=== PATIENT | female | born 1985 | race Caucasian/White ===

== ENCOUNTER 2017-06-23 21:42 | Emergency (ER) | payer SELFPAY ==
[2017-06-23 22:08] VITALS: BP 116/76
[2017-06-23] MEDS ORDERED: DIPH/PERTUSS(ACELL)/TETANUS VAC/PF 0.5 ML SYR (>=10YO) IM ONE (23:18)
--- NOTE | 2017-06-24 00:40 | RADIOLOGY REPORT (SQ) ---
EXAM DESCRIPTION: FOOT LEFT COMPLETE COMPLETED DATE/TIME: 06/24/2017 12:27 am REASON FOR STUDY: glass in foot COMPARISON: None. NUMBER OF VIEWS: Three views. TECHNIQUE: AP, lateral and oblique radiographic images acquired of the left foot. LIMITATIONS: None. FINDINGS: MINERALIZATION: Normal. BONES: No acute fracture or dislocation. No worrisome bone lesions. JOINTS: No effusions. SOFT TISSUES: No soft tissue swelling. No foreign body. OTHER: No other significant finding. IMPRESSION: NEGATIVE STUDY OF THE LEFT FOOT. NO RADIOGRAPHIC EVIDENCE OF ACUTE INJURY. TECHNICAL DOCUMENTATION: JOB ID: [id number] [employer]- All Rights Reserved
--- NOTE | 2017-06-24 00:58 | ER Document Report ---
ED Extremity Problem, Lower - General Chief Complaint: Foot Pain Stated Complaint: LEFT FOOT PAIN Time Seen by Provider: 06/23/17 23:47 Mode of Arrival: Ambulatory Information source: Patient Notes: 32-year-old female presented to ED for piece of glass in the plantar surface of her left foot just behind her toes. She states she dropped a bowl on a counter and thought she done a ball the glass and then she stepped on a piece of glass on the floor. She states when she tried to remove the glass herself and got very short of breath and faint because she has asthma and she gets when she gets in a position that makes it hard to breathe. TRAVEL OUTSIDE OF THE [place] IN LAST 30 DAYS: No - HPI Patient complains to provider of: Injury, Pain Location: Foot Occurred: This evening Where: Indoors Onset/Duration: Gradual Quality of pain: Sharp Severity: Moderate Pain Level: 4 Context: Barefoot, Other - Piece of glass in her foot Recent injury: Yes Associated symptoms: Painful ambulation Exacerbated by: Movement, Walking Relieved by: Nothing - Related Data Allergies/Adverse Reactions: pineapple Allergy (Verified 06/23/17 21:49) Pork/Porcine Containing Products Allergy (Verified 06/23/17 21:49) Past Medical History - General Information source: Patient - Social History Smoking Status: Never Smoker Cigarette use (# per day): No Chew tobacco use (# tins/day): No Smoking Education Provided: No Frequency of alcohol use: Rare Drug Abuse: None Lives with: Homeless Family History: CVA, Hypertension, Thyroid Disfunction. denies: Arthritis, CAD , COPD, DM, Hyperlipidemia, Malignancy Patient has suicidal ideation: No Patient has homicidal ideation: No - Past Medical History Cardiac Medical History: Reports: None Pulmonary Medical History: Reports: Hx Asthma EENT Medical History: Reports: None Neurological Medical History: Reports: None Endocrine Medical History: Reports: None Renal/ Medical History: Reports: None Malignancy Medical History: Reports: None GI Medical History: Reports: None Musculoskeltal Medical History: Reports Hx Musculoskeletal Deformity, Reports Hx Musculoskeletal Trauma Skin Medical History: Reports None Psychiatric Medical History: Reports: None Traumatic Medical History: Reports: None Infectious Medical History: Reports: None Past Surgical History: Reports: Hx Section - Immunizations Immunizations up to date: Yes Hx Diphtheria, Pertussis, Tetanus Vaccination: Yes - 06/24/2017 Review of Systems - Review of Systems Constitutional: No symptoms reported EENT: No symptoms reported Cardiovascular: No symptoms reported Respiratory: No symptoms reported Gastrointestinal: No symptoms reported Genitourinary: No symptoms reported Female Genitourinary: No symptoms reported Musculoskeletal: No symptoms reported Skin: Other - Glass shard in the plantar surface of her left foot Hematologic/Lymphatic: No symptoms reported Neurological/Psychological: No symptoms reported Physical Exam - Vital signs Vitals: Temp Pulse BP Pulse Ox 98.3 F 76 116/76 97 06/23/17 22:07 06/23/17 22:07 06/23/17 22:07 06/23/17 22:07 Interpretation: Normal - General General appearance: Appears well, Alert - HEENT Head: Normocephalic, Atraumatic Eyes: Normal Pupils: PERRL - Respiratory Respiratory status: No respiratory distress Chest status: Nontender Breath sounds: Normal Chest palpation: Normal - Cardiovascular Rhythm: Regular Heart sounds: Normal auscultation Murmur: No - Abdominal Inspection: Normal Distension: No distension Bowel sounds: Normal Tenderness: Nontender Organomegaly: No organomegaly - Back Back: Normal, Nontender - Extremities General upper extremity: Normal inspection, Nontender, Normal color, Normal ROM , Normal temperature General lower extremity: Normal inspection, Nontender, Normal color, Normal ROM , Normal temperature, Normal weight bearing. No: Cookie's sign - Neurological Neuro grossly intact: Yes Cognition: Normal Orientation: AAOx4 [place] Coma Scale Eye Opening: Spontaneous [place] Coma Scale Verbal: Oriented [place] Coma Scale Motor: Obeys Commands Victor[place] Coma Scale Total: 15 Speech: Normal Motor strength normal: LUE, RUE, LLE, RLE Sensory: Normal - Psychological Associated symptoms: Normal affect, Normal mood - Skin Skin Temperature: Warm Skin Moisture: Dry Skin Color: Normal Location of irregularity: Extremities - Glass shard in the plantar surface of her left foot just behind her toes Course - Re-evaluation Re-evalutation: 06/24/17 01:01 Left foot cleaned well with Betadine then glass shard removed with forceps and an 18-gauge needle. Patient tolerated well. Site was clean, bacitracin applied , and a Band-Aid applied. Patient was instructed to soak foot tomorrow and reapply bacitracin and Band-Aid. Patient was instructed to follow-up with primary doctor or emergency room if any signs of infection such as drainage redness or increased pain. - Vital Signs Vital signs: Temp Pulse Resp BP Pulse Ox 98.3 F 76 116/76 97 06/23/17 22:07 06/23/17 22:07 06/23/17 22:07 06/23/17 22:07 - Diagnostic Test Radiology reviewed: Image reviewed, Reports reviewed Discharge - Discharge Clinical Impression: glass in left foot plantar surface Condition: Stable Disposition: HOME, SELF-CARE Instructions: Family Physicians / Practices Additional Instructions: You were seen today for glass fragment in your left foot. Last was removed bacitracin and Band-Aid applied. You will need to soak your foot in the Betadine that you were provided with an warm water tomorrow then cleaned the foot off with some warm water and apply bacitracin and a Band-Aid after that you foot should be okay. SOAP CLEANSING: Gently wash the wound daily using a mild soap (like Ivory, Phisoderm, Neutrogena). Use warm water, rubbing gently until all debris, ooze, and crusting have been washed from the wound. Allow to dry briefly (about 10 minutes) after cleaning. Repeat this cleansing at least three times a day for the first two days and then once or twice a day. ANTIBIOTIC OINTMENT PROTECTION: Your wounds are such that dressing them is not practical or optional. After cleansing, you should apply a thin coating of antibiotic ointment ( Bacitracin, not Neosporin) to the wounds at least three times daily. This lessens infection risk, and may decrease the amount of scarring. Use a q-tip or dull butter knife, not your finger, to apply this ointment. Any debris or ooze which builds up in the ointment should be gently rubbed off with a sterile gauze pad. Harder crusting may need to be gently scrubbed off with a clean wash cloth with soap and warm water, perhaps applying a warm, wet wash cloth to the wound for ten minutes first. Development of redness, severe itching, or blistering may mean allergy to the ointment. See the doctor. TETANUS IMMUNIZATION GIVEN: You have been given an immunization against tetanus. Please record this in your records. In general, a booster is needed only once every 10 years. The tetanus shot protects against tetanus or "lockjaw," which is a complication of certain wound infections (the tetanus shot cannot protect against the actual infection). The immunization site may become warm and red due to local reaction. If this occurs, apply warm compresses and take aspirin or ibuprofen to reduce inflammation and discomfort. Return for evaluation if the reaction becomes severe. FOLLOW-UP CARE: If you have been referred to a physician for follow-up care, call the physician s office for an appointment as you were instructed or within the next two days. If you experience worsening or a significant change in your symptoms, notify the physician immediately or return to the Emergency Department at any time for re-evaluation.
== END 2017-06-24 01:04 | disposition home or self-care (01) ==
LOC: ER 21:42
PROC: 0JCR3ZZ Extirpation of Matter from Left Foot Subcutaneous Tissue and Fascia, Percutaneous Approach (ICD-10-PCS; principal; 2017-06-23)
DX: S90.852A Superficial foreign body, left foot, initial encounter (principal); M79.672 Pain in left foot; R06.02 Shortness of breath; X58.XXXA Exposure to other specified factors, initial encounter
CPT/HCPCS: 90471; 90715; 99283

== ENCOUNTER 2017-09-14 15:13 | Emergency (ER) | payer SELFPAY ==
--- NOTE | 2017-09-14 15:27 | ER Document Report ---
ED GI/ - General Chief Complaint: Urinary Frequency Stated Complaint: FREQUENT URINATION Time Seen by Provider: 09/14/17 15:26 Notes: 32-year-old female to the emergency department chief complaint of dysuria and frequency. Started on some [id number] Azo approximately 3 days ago. This has helped. Actually she feels pretty good at this time but then began to get worried that she may actually have an infection that could get worse so wanted to get it checked out definitively. Denies any fevers. Denies any abdominal pain. States that she was on her menstrual cycle 2 days ago and stopped. Denies any other complaints at this time. Denies any flank pain. States that she did have a history of kidney stones but has not had any pain other than frequency with urination and some mild discomfort with urination TRAVEL OUTSIDE OF THE [place] IN LAST 30 DAYS: No - HPI Patient complains to provider of: Dysuria. No: Abdominal pain, Diarrhea, Flank pain, Hematuria, Pelvic pain Timing/Duration: Gradual, Better Quality of pain: Burning Severity at maximum: Mild Severity in ED: Mild Pain Level: 0 - Related Data Allergies/Adverse Reactions: pineapple Allergy (Verified 06/23/17 21:49) Pork/Porcine Containing Products Allergy (Verified 06/23/17 21:49) Past Medical History - General Information source: Patient - Social History Smoking Status: Never Smoker Cigarette use (# per day): No Frequency of alcohol use: None Drug Abuse: None Lives with: Spouse/Significant other Family History: CVA, Hypertension, Thyroid Disfunction. denies: Arthritis, CAD , COPD, DM, Hyperlipidemia, Malignancy Pulmonary Medical History: Reports: Hx Asthma Renal/ Medical History: Denies: Hx Peritoneal Dialysis Musculoskeltal Medical History: Reports Hx Musculoskeletal Deformity, Reports Hx Musculoskeletal Trauma Past Surgical History: Reports: Hx Section - Immunizations Immunizations up to date: Yes Hx Diphtheria, Pertussis, Tetanus Vaccination: Yes - 06/24/2017 Review of Systems - Review of Systems Constitutional: denies: Fever, Malaise, Weakness Cardiovascular: denies: Chest pain, Palpitations, Heart racing Respiratory: denies: Cough, Hurts to breathe, Short of breath Gastrointestinal: denies: Abdominal pain, Diarrhea, Nausea, Vomiting Genitourinary: Dysuria, Frequency, Urgency. denies: Flank pain, Hematuria, Incontinence Female Genitourinary: denies: , Vaginal discharge, Vaginal bleeding Physical Exam - Vital signs Interpretation: Normal - General General appearance: Appears well, Alert - Respiratory Respiratory status: No respiratory distress Chest status: Nontender Breath sounds: Normal Chest palpation: Normal - Cardiovascular Rhythm: Regular Heart sounds: Normal auscultation Murmur: No - Abdominal Inspection: Normal Distension: No distension Bowel sounds: Normal Tenderness: Nontender Organomegaly: No organomegaly - Back Back: Normal, Nontender. No: CVA tenderness - Psychological Associated symptoms: Normal affect, Normal mood Course - Re-evaluation Re-evalutation: 09/14/17 15:44 This is a well-appearing 32-year-old female in no acute distress. Patient has symptoms consistent with uncomplicated UTI. Urine urinalysis results but will treat based on her symptoms. The patient is comfortable with this plan. Discharge - Discharge Clinical Impression: Urinary tract infection Qualifiers: Urinary tract infection type: site unspecified Hematuria presence: without hematuria Qualified Code(s): N39.0 - Urinary tract infection, site not specified Disposition: HOME, SELF-CARE Instructions: Trimethoprim-Sulfa ([facility]), Urinary Tract Infection ([facility]) Prescriptions: Sulfamethoxazole/Trimethoprim [Bactrim Ds Tablet] 1 each PO BID 3 Days #6 tablet
[2017-09-14 16:07] LABS: APPEARANCE,URINE SLIGHTLY-CLOUDY; BILIRUBIN,URINE NEGATIVE (NEGATIVE); COLOR,URINE YELLOW; GLUCOSE, URINE NEGATIVE (NEGATIVE); KETONES,URINE NEGATIVE (NEGATIVE); LEUKOCYTE ESTERASE,URINE TRACE (NEGATIVE); NITRITE,URINE NEGATIVE (NEGATIVE); PROTEIN,URINE NEGATIVE (NEGATIVE); URINE SPECIFIC GRAVITY 1.019; UROBILINOGEN,URINE NEGATIVE mg/dL (<2.0)
[2017-09-14 16:24] VITALS: BP 125/66
== END 2017-09-14 16:10 | disposition home or self-care (01) ==
LOC: ER 15:13
DX: N39.0 Urinary tract infection, site not specified (principal); J45.909 Unspecified asthma, uncomplicated; Z87.442 Personal history of urinary calculi; Z91.018 Allergy to other foods
CPT/HCPCS: 81001; 81025; 87086; 99283

== ENCOUNTER 2017-10-24 10:54 | Emergency (ER) | payer SELFPAY ==
[2017-10-24 11:00] VITALS: BP 100/85
[2017-10-24] MEDS ORDERED: IBUPROFEN 800 MG TABLET PO ONE (11:32)
--- NOTE | 2017-10-24 11:34 | ER Document Report ---
ED Oral Problem - General Chief Complaint: Mouth Problem Stated Complaint: SORE THROAT Time Seen by Provider: 10/24/17 11:09 Mode of Arrival: Ambulatory Information source: Patient Notes: Patient is a 32-year-old female who presents to the ER today for 4 days of congestion, 2 days of teeth pain "all over" and "a weird feeling when I swallow. " Patient denies any swelling anywhere or pain when she swallows, admits to a headache. Patient denies any cough, shortness of breath, wheezing, fever, chills. TRAVEL OUTSIDE OF THE [place] IN LAST 30 DAYS: No - Related Data Allergies/Adverse Reactions: pineapple Allergy (Verified 10/24/17 10:55) Pork/Porcine Containing Products Allergy (Verified 10/24/17 10:55) Past Medical History - General Information source: Patient - Social History Smoking Status: Never Smoker Family History: CVA, Hypertension, Thyroid Disfunction. denies: Arthritis, CAD , COPD, DM, Hyperlipidemia, Malignancy Pulmonary Medical History: Reports: Hx Asthma Renal/ Medical History: Denies: Hx Peritoneal Dialysis Musculoskeltal Medical History: Reports Hx Musculoskeletal Deformity, Reports Hx Musculoskeletal Trauma Past Surgical History: Reports: Hx Section - Immunizations Immunizations up to date: Yes Hx Diphtheria, Pertussis, Tetanus Vaccination: Yes - 06/24/2017 Review of Systems - Review of Systems Constitutional: No symptoms reported EENT: See HPI Cardiovascular: No symptoms reported Respiratory: No symptoms reported Gastrointestinal: No symptoms reported Genitourinary: No symptoms reported Female Genitourinary: No symptoms reported Musculoskeletal: No symptoms reported Skin: No symptoms reported Hematologic/Lymphatic: No symptoms reported Neurological/Psychological: No symptoms reported Physical Exam - Vital signs Vitals: Temp Pulse Resp BP Pulse Ox 99.0 F 80 17 100/85 96 10/24/17 10:58 10/24/17 10:58 10/24/17 10:58 10/24/17 10:58 10/24/17 10:58 - Notes Notes: PHYSICAL EXAMINATION: GENERAL: Mildly ill-appearing, but in no acute distress. HEAD: Atraumatic, normocephalic. EYES: Pupils equal round and reactive to light, extraocular movements intact, sclera anicteric, conjunctiva are normal. ENT: ear canals without erythema or foreign body, TMs pearly irizarry with good bony landmarks, nares with mucoid discharge , oropharynx erythematous without enlarged tonsils without exudates. Moist mucous membranes. maxillary and frontal sinuses tender to palpation NECK: Normal range of motion, supple without lymphadenopathy LUNGS: CTAB and equal. No wheezes rales or rhonchi. HEART: Regular rate and rhythm without murmurs EXTREMITIES: Normal range of motion, no pitting edema. No cyanosis. NEUROLOGICAL: Cranial nerves grossly intact. Normal sensory/motor exams. PSYCH: Normal mood, normal affect. SKIN: Warm, Dry, normal turgor, no rashes or lesions noted Course - Vital Signs Vital signs: Temp Pulse Resp BP Pulse Ox 99.0 F 80 17 100/85 96 10/24/17 10:58 10/24/17 10:58 10/24/17 10:58 10/24/17 10:58 10/24/17 10:58 Discharge - Discharge Clinical Impression: Sinusitis Qualifiers: Sinusitis location: unspecified location Chronicity: acute Recurrence: non- recurrent Qualified Code(s): J01.90 - Acute sinusitis, unspecified Condition: Stable Disposition: HOME, SELF-CARE Additional Instructions: Return immediately for any new or worsening symptoms. Follow up with primary care provider, call tomorrow to make followup appointment. Prescriptions: Amoxicillin 500 mg PO TID #30 capsule Fluticasone Propionate [Flonase Nasal [place] 50 Mcg/[place] 16 gm] 2 sprays NASL Q12 #1 inhaler Ibuprofen [Motrin 800 mg Tablet] 800 mg PO Q8H PRN #30 tab PRN Reason:
== END 2017-10-24 11:42 | disposition home or self-care (01) ==
LOC: ER 10:54
DX: J01.90 Acute sinusitis, unspecified (principal); J02.9 Acute pharyngitis, unspecified; R51 Headache; K08.89 Other specified disorders of teeth and supporting structures; J45.909 Unspecified asthma, uncomplicated; Z91.018 Allergy to other foods
CPT/HCPCS: 99282

== ENCOUNTER 2018-07-13 21:07 | Emergency (ER) | payer SELFPAY ==
[2018-07-13 21:28] VITALS: BP 112/63
--- NOTE | 2018-07-13 23:19 | ER Document Report ---
HPI - HPI Time Seen by Provider: 07/13/18 22:24 Pain Level: 3 Notes: Patient is an otherwise healthy 33-year-old female who presents to the emergency department with complaint of splinter in her right index finger. She reports this is been present for approximately 2 hours. She denies trying to remove the splinter prior to coming to the emergency department. - CONSTITUTIONAL Constitutional: DENIES: Fever, Chills - REPRODUCTIVE Reproductive: DENIES: : Past Medical History - General Information source: Patient - Social History Smoking Status: Never Smoker Frequency of alcohol use: None Drug Abuse: None Family History: CVA, Hypertension, Thyroid Disfunction. denies: Arthritis, CAD, COPD, DM, Hyperlipidemia, Malignancy Patient has suicidal ideation: No Patient has homicidal ideation: No Pulmonary Medical History: Reports: Hx Asthma Renal/ Medical History: Denies: Hx Peritoneal Dialysis Musculoskeletal Medical History: Reports Hx Musculoskeletal Deformity, Reports Hx Musculoskeletal Trauma Past Surgical History: Reports: Hx Section - Immunizations Immunizations up to date: Yes Hx Diphtheria, Pertussis, Tetanus Vaccination: Yes - 06/24/2017 Vertical Provider Document - CONSTITUTIONAL Notes: PHYSICAL EXAMINATION: GENERAL: Well-appearing, well-nourished and in no acute distress. HEAD: Atraumatic, normocephalic. EYES: Pupils equal round extraocular movements intact, conjunctiva are normal. ENT: Nares patent NECK: Normal range of motion LUNGS: No respiratory distress Musculoskeletal: Normal range of motion NEUROLOGICAL: Normal speech, normal gait. PSYCH: Normal mood, normal affect. SKIN: Warm, Dry, normal turgor, no rashes or lesions noted. Tiny splinter noted to patient's right index finger, no erythema or swelling noted. - INFECTION CONTROL TRAVEL OUTSIDE OF THE [place] IN LAST 30 DAYS: No Course - Re-evaluation Re-evalutation: 07/13/18 23:18 Splinter was removed without difficulty with tweezers. - Vital Signs Vital signs: Temp Pulse Resp BP Pulse Ox 98.2 F 80 18 112/63 97 07/13/18 21:27 07/13/18 21:27 07/13/18 21:27 07/13/18 21:27 07/13/18 21:27 Discharge - Discharge Clinical Impression: Splinter removal, Splinter in skin Condition: Stable Disposition: HOME, SELF-CARE Additional Instructions: The splinter in your finger was removed. Please keep the Band-Aid on the area for the next hour.
== END 2018-07-13 23:30 | disposition home or self-care (01) ==
LOC: ER 21:07
DX: S60.450A Superficial foreign body of right index finger, initial encounter (principal); W45.8XXA Other foreign body or object entering through skin, initial encounter
CPT/HCPCS: 99283

== ENCOUNTER 2018-12-05 15:54 | Emergency (ER) | payer SELFPAY ==
[2018-12-05 16:01] VITALS: BP 110/65
--- NOTE | 2018-12-05 16:06 | ER Document Report ---
HPI - HPI Patient complains to provider of: lip and knee pain Time Seen by Provider: 12/05/18 16:00 Onset: Yesterday Onset/Duration: Sudden Pain Level: 2 Context: Patient presents emergency department with reports she had an incident yesterday. She reports that she slipped on some ice and fell and hit her lip on the sliding glass window. She also reports her knee is hurt. No change in LOC. No other symptoms such as fever vomiting diarrhea. Associated Symptoms: None Exacerbated by: Denies Relieved by: Denies Similar symptoms previously: No Recently seen / treated by doctor: No - REPRODUCTIVE Reproductive: DENIES: : Past Medical History - General Information source: Patient Last Menstrual Period: 11/03/18 - Social History Smoking Status: Unknown if Ever Smoked Cigarette use (# per day): No Frequency of alcohol use: None Drug Abuse: None Family History: CVA, Hypertension, Thyroid Disfunction. denies: Arthritis, CAD, COPD, DM, Hyperlipidemia, Malignancy Pulmonary Medical History: Reports: Hx Asthma Renal/ Medical History: Denies: Hx Peritoneal Dialysis Musculoskeletal Medical History: Reports Hx Musculoskeletal Deformity, Reports Hx Musculoskeletal Trauma Past Surgical History: Reports: Hx Section - Immunizations Immunizations up to date: Yes Hx Diphtheria, Pertussis, Tetanus Vaccination: Yes - 06/24/2017 Vertical Provider Document - CONSTITUTIONAL Agree With Documented VS: Yes Exam Limitations: No Limitations General Appearance: WD/WN, No Apparent Distress - Nontoxic looking - INFECTION CONTROL TRAVEL OUTSIDE OF THE [place] IN LAST 30 DAYS: No - HEENT HEENT: Atraumatic, Normocephalic. negative: Conjuctival Injection, Pharyngeal Erythema Mouth Diagram: 1 - Small swelling noted - NECK Neck: Normal Inspection, Supple. negative: Lymphadenopathy-Left, Lymphadenopathy-Right - RESPIRATORY Respiratory: Breath Sounds Normal, No Respiratory Distress - CARDIOVASCULAR Cardiovascular: Regular Rate, Regular Rhythm - MUSCULOSKELETAL/EXTREMETIES Musculoskeletal/Extremeties: MAEW, FROM, Non-Tender - pt c/o left knee was hurting, no pain voiced with palpation, no obvious deformity, no swelling, no ecchymosis, no erythema/warmth. +from. - NEURO Level of Consciousness: Awake, Alert, Appropriate Motor/Sensory: No Motor Deficit - DERM Integumentary: Warm, Dry Adult Front & Back Diagram: 1 - Complains of some pain tenderness, no erythema no swelling no warmth no obvious discharge full range patient patient walks without problems Course - Re-evaluation Re-evalutation: 12/05/18 16:10 Patient looks good nontoxic looking. Instructed to monitor her lip place cool cloth on it and ice pack to her knee. She was also instructed ibuprofen for any pain she verbalized understanding to all instructions Dictation of this chart was performed using voice recognition software; therefore, there may be some unintended grammatical errors. - Vital Signs Vital signs: Temp Pulse Resp BP Pulse Ox 99.1 F 78 18 110/65 98 12/05/18 15:59 12/05/18 15:59 12/05/18 15:59 12/05/18 15:59 12/05/18 15:59 Discharge - Discharge Clinical Impression: Lip pain, Left knee pain Condition: Stable Disposition: HOME, SELF-CARE Instructions: Use of [id number] Ibuprofen ([facility]) Additional Instructions: *You have been evaluated for left knee pain lip pain after a fall yesterday. *Take ibuprofen as indicated for pain *Follow up with a primary care provider within 1 week for recheck *Return to ED for worsening condition, changes, needs
== END 2018-12-05 16:19 | disposition home or self-care (01) ==
LOC: ER 15:54
DX: M25.562 Pain in left knee (principal); K13.79 Other lesions of oral mucosa; W00.0XXA Fall on same level due to ice and snow, initial encounter
CPT/HCPCS: 99283

== ENCOUNTER 2019-03-19 10:47 | Emergency (ER) | payer SELFPAY ==
[2019-03-19 11:27] LABS: ALBUMIN 4.1 g/dL (3.5-5.0); ALKALINE PHOSPHATASE 64 U/L (38-126); ANION GAP 9 (5-19); ASPARTATE AMINO TRANSFERASE 20 U/L (14-36); BILIRUBIN,DIRECT 0.2 mg/dL (0.0-0.4); BILIRUBIN,TOTAL 0.3 mg/dL (0.2-1.3); BLOOD UREA NITROGEN 15 mg/dL (7-20); CALCIUM 9.2 mg/dL (8.4-10.2); CARBON DIOXIDE 23 mmol/L (22-30); CHLORIDE 104 mmol/L (98-107); GLUCOSE 109 mg/dL (75-110); POTASSIUM 3.9 mmol/L (3.6-5.0); TOTAL PROTEIN 7.4 g/dL (6.3-8.2)
[2019-03-19 11:30] LABS: ABSOLUTE EOSINOPHILS # (AUTO) 0.1 10^3/uL (0.0-0.6); ABSOLUTE LYMPHOCYTES (AUTO) 0.8 10^3/uL (0.5-4.7); ABSOLUTE MONOCYTES (AUTO) 0.5 10^3/uL (0.1-1.4); ABSOLUTE NEUT (AUTO) 6.6 10^3/uL (1.7-8.2); BASOPHILS % (AUTO) 0.3 % (0-2); EOSINOPHILS % (AUTO) 0.9 % (0-6); HEMOGLOBIN 9.3 g/dL (12.0-15.5); MEAN CORPUSCULAR HEMOGLOBIN 25.3 pg (27.0-33.4); MEAN CORPUSCULAR HGB CONC 33.1 g/dL (32.0-36.0); MEAN CORPUSCULAR VOLUME 77 fl (80-97); MONOCYTES % (AUTO) 5.9 % (3-13); PLATELET COUNT 223 10^3/uL (150-450); RED BLOOD COUNT 3.67 10^6/uL (3.72-5.28); RED CELL DISTRIBUTION WIDTH 15.1 % (11.5-14.0); SEGMENTED NEUTROPHILS % (AUTO) 82.9 % (42-78); TOTAL CELLS COUNTED % (AUTO) 100 %; WHITE BLOOD COUNT 7.9 10^3/uL (4.0-10.5)
--- NOTE | 2019-03-19 11:40 | ER Document Report ---
ED Medical Screen (RME) - General Chief Complaint: Fall Stated Complaint: FALL Time Seen by Provider: 03/19/19 11:27 Information source: Patient Notes: Patient presents complaining of syncopal episode prior to arrival. Patient states she did not have any complaints and then got dizzy and passed out. Patient states that since the syncopal episode she does have lower pelvic pain and left foot pain with nausea. Patient denies any chest pain shortness of breath or headache symptoms. Patient does report a history of anemia. I have greeted and performed a rapid initial assessment of this patient. A comprehensive ED assessment and evaluation of the patient, analysis of test results and completion of the medical decision making process will be conducted by additional ED providers. TRAVEL OUTSIDE OF THE [place] IN LAST 30 DAYS: No - Related Data Allergies/Adverse Reactions: pineapple Allergy (Verified 12/05/18 15:56) Pork/Porcine Containing Products Allergy (Verified 12/05/18 15:56) Past Medical History Pulmonary Medical History: Reports: Hx Asthma Renal/ Medical History: Denies: Hx Peritoneal Dialysis Musculoskeltal Medical History: Reports Hx Musculoskeletal Deformity, Reports Hx Musculoskeletal Trauma Past Surgical History: Reports: Hx Section - Immunizations Immunizations up to date: Yes Hx Diphtheria, Pertussis, Tetanus Vaccination: Yes - 06/24/2017 Physical Exam - Vital signs Vitals: Temp Pulse Resp BP 98.1 F 73 20 112/60 03/19/19 11:00 03/19/19 11:00 03/19/19 11:00 03/19/19 11:00 - General General appearance: Alert Notes: Patient very pale, lower pelvic tenderness Course - Vital Signs Vital signs: Temp Pulse Resp BP Pulse Ox 98.1 F 73 20 112/60 03/19/19 11:00 03/19/19 11:00 03/19/19 11:00 03/19/19 11:00 - Laboratory Result Diagrams: 03/19/19 10:52 03/19/19 10:52 Laboratory results interpreted by me: 03/19/19 03/19/19 10:52 10:52 RBC 3.67 L Hgb 9.3 L Hct 28.0 L MCV 77 L MCH 25.3 L RDW 15.1 H Lymph % (Auto) 10.0 L Seg Neutrophils % 82.9 H Sodium 136.1 L
[2019-03-19 12:36] LABS: APPEARANCE,URINE CLOUDY; BILIRUBIN,URINE NEGATIVE (NEGATIVE); GLUCOSE, URINE NEGATIVE (NEGATIVE); KETONES,URINE NEGATIVE (NEGATIVE); LEUKOCYTE ESTERASE,URINE LARGE (NEGATIVE); NITRITE,URINE POSITIVE (NEGATIVE); PROTEIN,URINE 30 mg/dL (NEGATIVE); URINE SPECIFIC GRAVITY 1.026; UROBILINOGEN,URINE NEGATIVE mg/dL (<2.0)
[2019-03-19 12:37] LABS: COLOR,URINE YELLOW
--- NOTE | 2019-03-19 12:46 | EKG REPORT ---
SEVERITY:- NORMAL ECG - SINUS RHYTHM : Confirmed by: Qasim Varela MD 19-Mar-2019 12:46:02
--- NOTE | 2019-03-19 12:48 | ER Document Report ---
ED General - General TRAVEL OUTSIDE OF THE [place] IN LAST 30 DAYS: No <TONI SAM - Last Filed: 03/19/19 12:48> <KARMEN SUGGS - Last Filed: 03/19/19 18:49> - General Chief Complaint: Fall Stated Complaint: FALL Time Seen by Provider: 03/19/19 11:27 Primary Care Provider: KENISHA DIAZ MD [ACTIVE PROVISIONAL STAFF] - Follow up tomorrow ASHUTOSH HORTON MD [COMMUNITY BASED STAFF] - Follow up tomorrow FATIMAH LOPEZ MD [ACTIVE STAFF] - Follow up in 3-5 days Notes: Patient is a 34-year-old female who presents to the emergency department with a chief complaint of dizziness and falling. She was not doing anything in particular. She also complains of left foot pain. (TONI SAM) - Related Data Allergies/Adverse Reactions: pineapple Allergy (Verified 12/05/18 15:56) Pork/Porcine Containing Products Allergy (Verified 12/05/18 15:56) Past Medical History - General Information source: Patient - Social History Smoking Status: Unknown if Ever Smoked Family History: CVA, Hypertension, Thyroid Disfunction. denies: Arthritis, CAD, COPD, DM, Hyperlipidemia, Malignancy Patient has suicidal ideation: No Patient has homicidal ideation: No Pulmonary Medical History: Reports: Hx Asthma Renal/ Medical History: Denies: Hx Peritoneal Dialysis Musculoskeletal Medical History: Reports Hx Musculoskeletal Deformity, Reports Hx Musculoskeletal Trauma Past Surgical History: Reports: Hx Section - Immunizations Immunizations up to date: Yes Hx Diphtheria, Pertussis, Tetanus Vaccination: Yes - 06/24/2017 <TONI SAM - Last Filed: 03/19/19 12:48> Review of Systems - Review of Systems Constitutional: No symptoms reported EENT: No symptoms reported Cardiovascular: No symptoms reported Respiratory: No symptoms reported Gastrointestinal: No symptoms reported Genitourinary: No symptoms reported Female Genitourinary: See HPI Musculoskeletal: See HPI Skin: No symptoms reported Hematologic/Lymphatic: No symptoms reported Neurological/Psychological: See HPI <ESKARMEN - Last Filed: 03/19/19 18:49> Physical Exam <TONI SAM - Last Filed: 03/19/19 12:48> - Vital signs Interpretation: Normal <KARMEN SUGGS - Last Filed: 03/19/19 18:49> - Vital signs Vitals: Temp Pulse Resp BP 98.1 F 73 20 112/60 03/19/19 11:00 03/19/19 11:00 03/19/19 11:00 03/19/19 11:00 - Notes Notes: PHYSICAL EXAMINATION: GENERAL: Appears well, healthy, well-nourished, no acute distress. HEAD: Normocephalic, atraumatic. EYES: PERRL, conjunctiva normal, all extraocular movements intact, sclera nonicteric ENT: Moist mucous membranes. NECK: Supple, no noticeable swelling, redness, rash. Normal range of motion. LUNGS: Equal breath sounds bilaterally and clear to auscultation. No wheezes rales or rhonchi. CARDIOVASCULAR: S1-S2, regular rate, regular rhythm. Radial pulses 2+, normal. ABDOMEN: Normoactive bowel sounds. Soft, nontender, no guarding, no rebound tenderness, and no masses palpated. EXTREMITIES: Normal strength and range of motion, no pitting or edema. No cyanosis. NEUROLOGICAL: Moves all extremities upon command. Strength 5/5 in all extremities. PSYCH: Normal mood, normal affect. SKIN: Warm, dry. No rash, lesions, ulcerations noted. Normal skin turgor. [facility] PHYSICAL EXAMINATION: GENERAL: Well-appearing, well-nourished and in no acute distress. HEAD: Atraumatic, normocephalic. EYES: Pupils equal round and reactive to light, extraocular movements intact, conjunctiva are normal. ENT: Nares patent, oropharynx clear without exudates. Moist mucous membranes. NECK: Normal range of motion, supple without lymphadenopathy LUNGS: Breath sounds clear to auscultation bilaterally and equal. No wheezes rales or rhonchi. HEART: Regular rate and rhythm without murmurs ABDOMEN: Soft, nontender, nondistended abdomen. No guarding, no rebound. No masses appreciated. Suprapubic tenderness on palpation, no CVA tenderness bilaterally Musculoskeletal: Normal range of motion, no pitting or edema. No cyanosis. left foot with STS and tenderness on 4th and 5th metatarsal bones with palpation. Unable to palpate a step-off. No open lesions. squeeze test negative. dtr +2 BLE. Limited APROM. distal pulses + 2 in BUE. full motor and sensory function. No vascular compromise. Ankle exam within normal limits. No noted lacerations, lesions, ulcers or break in the skin. NEUROLOGICAL: Cranial nerves grossly intact. Normal speech, normal gait. Normal sensory, motor exams PSYCH: Normal mood, normal affect. SKIN: Warm, Dry, normal turgor, no rashes or lesions noted. (KARMEN SUGGS) Course - Laboratory Result Diagrams: 03/19/19 10:52 03/19/19 10:52 <TONI SAM - Last Filed: 03/19/19 12:48> - Laboratory Result Diagrams: 03/19/19 10:52 03/19/19 10:52 <ESKARMEN Lara - Last Filed: 03/19/19 18:49> - Re-evaluation Re-evalutation: 03/19/19 16:35 Afebrile vital stable no distress. CBC shows anemia, no leukocytosis, CMP negative for hepatic or renal dysfunction, no electrolyte disturbances, urinalysis does show positive nitrite with leukesterase, noted proteinuria and hematuria. Vaginal ultrasound recommended another repeat ultrasound in 6 to 12 months for left ovarian cyst. Patient given 1 g Rocephin IVP for pyelonephritis as well as getting IV fluids. Orthostatic blood pressures were normal. X-ray of foot did show a displaced fifth metatarsal fracture and possibly a fracture of the fourth metatarsal, patient will be placed in a short posterior splint for the left foot and follow-up with renal medicine specialist within 1 week Consent by pt given to place short left posterior short splint,. cms intact, sensory motor function intact in bilateral lower extremities prior to splint application fiberglass splint placed without incident. cms intact 20 minutes after splint application. Splint is in good alignment. Bilateral lower extremities with motor and sensory function intact 20 minutes after application. Pt stated that splint felt comfortable. Patient given crutches. Patient discharged with Bactrim, urine cultures ordered. Advised to increase oral hydration, take antibiotic with food as directed, use crutches, do not get splint wet. Discussed compartment syndrome signs and symptoms to look for, advised to take [place] only for severe pain, do not drive, drink or operate heavy machinery while taking medication to cause sedation and impairment of cognitive function. Work note given. Advised to follow-up with renal medicine specialist, [employer], primary care provider within the next 24 to 48 hours. All questions and concerns answered by this provider. After performing a Medical Screening Examination, I estimate there is LOW risk for ACUTE APPENDICITIS, BOWEL OBSTRUCTION, ACUTE CHOLECYSTITIS, PERFORATED DIVERTICULITIS, subarachnoid hemorrhage, intracranial hemorrhage, tumor , INCARCERATED HERNIA, PANCREATITIS, PELVIC INFLAMMATORY DISEASE, PERFORATED ULCER, ECTOPIC , or TUBO- OVARIAN ABSCESS, thus I consider the discharge disposition reasonable. Also, there is no evidence or peritonitis, sepsis, or toxicity. I have reevaluated this patient multiple times and no significant life threatening changes are noted. The patient and I have discussed the diagnosis and risks, and we agree with discharging home with close follow-up with the understanding that symptoms and presentations can change. We also discussed returning to the Emergency Department immediately if new or worsening symptoms occur. We have discussed the symptoms which are most concerning (e.g., bloody stool, fever, changing or worsening pain, vomiting) that necessitate immediate return. (KARMEN SUGGS) - Vital Signs Vital signs: Temp Pulse Resp BP Pulse Ox 98.1 F 73 15 112/60 98 03/19/19 11:00 03/19/19 11:00 03/19/19 13:00 03/19/19 11:00 03/19/19 13:00 - Laboratory Laboratory results interpreted by me: 03/19/19 03/19/19 03/19/19 10:52 10:52 12:00 RBC 3.67 L Hgb 9.3 L Hct 28.0 L MCV 77 L MCH 25.3 L RDW 15.1 H Lymph % (Auto) 10.0 L Seg Neutrophils % 82.9 H Sodium 136.1 L Urine Protein 30 H Urine Blood SMALL H Urine Nitrite POSITIVE H Ur Leukocyte Esterase LARGE H Discharge <TONI SAM - Last Filed: 03/19/19 12:48> <KARMEN SUGGS - Last Filed: 03/19/19 18:49> - Discharge Clinical Impression: Foot fracture, Pyelonephritis, Syncopal episodes, Anemia Condition: Stable Disposition: HOME, SELF-CARE Instructions: Anemia ([facility]), Antinausea Medication ([facility]), Ciprofloxacin ([facility]), Use of Crutches ([facility]), Fracture ([facility]), Oral Narcotic Medication ([facility]), Pyelonephritis ([facility]), Rocephin ([facility]), Splint Pending Casting ([facility]), Splint Precautions ([facility]), Syncopal Episode ([facility]), Temporary Splint ([facility]), Trimethoprim- Sulfa ([facility]) Additional Instructions: Return immediately for any new or worsening symptoms. Follow up with primary care provider, call tomorrow to make followup appointment. Prescriptions: Sulfamethoxazole/Trimethoprim [Bactrim Ds Tablet] 1 each PO BID #20 tablet Forms: Return to Work Referrals: ASHUTOSH HORTON MD [COMMUNITY BASED STAFF] - Follow up tomorrow FATIMAH LOPEZ MD [ACTIVE STAFF] - Follow up in 3-5 days KENISHA DIAZ MD [ACTIVE PROVISIONAL STAFF] - Follow up tomorrow
[2019-03-19 12:54] LABS: URINE AMPHETAMINES SCREEN NEGATIVE; URINE BARBITURATES SCREEN NEGATIVE; URINE BENZODIAZEPINES SCREEN NEGATIVE; URINE COCAINE SCREEN NEGATIVE; URINE MARIJUANA (THC) SCREEN NEGATIVE; URINE METHADONE SCREEN NEGATIVE; URINE PHENCYCLIDINE SCREEN NEGATIVE
--- NOTE | 2019-03-19 14:29 | RADIOLOGY REPORT (SQ) ---
EXAM DESCRIPTION: U/S NON OB PEL TV W/DOPPLER COMPLETED DATE/TIME: 03/19/2019 2:05 pm REASON FOR STUDY: pelvic pain, syncope COMPARISON: None. TECHNIQUE: Dynamic and static grayscale images acquired of the pelvis via transvaginal approach and recorded on PACS. Additional selected color Doppler and spectral images recorded. LIMITATIONS: None. 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 No mass. ENDOMETRIAL STRIPE: No focal or generalized thickening. No masses. CERVIX: The cervix measures 2.7 cm in length. No nabothian cysts. RIGHT OVARY AND DOPPLER: Normal size. A complex 2.6 x 2.4 x 2.0 cm septated cyst. Normal arterial v ascular flow without evidence for torsion. LEFT OVARY AND DOPPLER: Normal size. No worrisome masses. Normal arterial vascular flow without evide nce for torsion. FREE FLUID: None noted. OTHER: No other significant finding. MEASUREMENTS: UTERUS: 8.4 x 6.2 x 4.6 cm ENDOMETRIAL STRIPE: Right endometrial stripe measures 0.9 cm. Left endometrial stripe measures 1.7 cm RIGHT OVARY: 4.4 x 3.5 x 2.6 cm LEFT OVARY: 2.4 x 2.6 x 2.1 cm IMPRESSION: 1. 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 2. A complex septated left ovarian cyst. Follow-up ultrasound in 6 to 12 weeks is suggested. COMMENT: Followup of asymptomatic indeterminate ovarian cysts detected by ultrasound in PREMENOPAUS [place] patients Cyst with findings suggestive of, but not classic for, hemorrhagic cyst, endometrioma or dermoid: *6-12 week followup US; if not a resolving hemorrhagic cyst, continued US or MRI followup; if endomet rioma or dermoid still not confirmed, consider surgical consultation Single thin septation or focal wall calcification: *Same as for benign cyst, based on size Multiple septations: *Consider surgical consultation Nodule in a cyst: *No blood flow in nodule: MRI or surgical consultation *Blood flow in nodule: surgical consultation Note: If cyst is clinically symptomatic or otherwise concerning, other followup may be warranted. Based on recommendations of the Society for Radiologists in Ultrasound Consensus Conference Statement 2010 on management of asymptomatic ovarian and other adnexal cysts imaged at ultrasound. TECHNICAL DOCUMENTATION: JOB ID: [id number] [employer]- All Rights Reserved Reading location - IP/workstation name: [email or web address]
--- NOTE | 2019-03-19 14:35 | RADIOLOGY REPORT (SQ) ---
EXAM DESCRIPTION: FOOT LEFT COMPLETE COMPLETED DATE/TIME: 03/19/2019 2:24 pm REASON FOR STUDY: syncope, foot pain COMPARISON: None. NUMBER OF VIEWS: Three views. TECHNIQUE: AP, lateral and oblique radiographic images acquired of the left foot. LIMITATIONS: None. FINDINGS: MINERALIZATION: Normal. BONES: Fracture of the neck of the 5th metatarsal with dorsal displacement of the metatarsal head. C annot exclude nondisplaced fracture of the 4th metatarsal head. JOINTS: No effusions. SOFT TISSUES: No soft tissue swelling. No foreign body. OTHER: No other significant finding. IMPRESSION: Displaced fracture of the 5th metatarsal neck. Cannot exclude a nondisplaced fracture o f the 4th metatarsal head. TECHNICAL DOCUMENTATION: JOB ID: [id number] [employer]- All Rights Reserved Reading location - IP/workstation name: [email or web address]
[2019-03-19] MEDS ORDERED: HYDROCODONE/ACETAMINOPHEN 5-325 MG (6 TAB/ER DISP) PO PRN (16:12)
[2019-03-19] MEDS ORDERED: CEFTRIAXONE 1 GM/D5W RTU 1 GM/50 ML RTUPB IV ONE (17:00)
[2019-03-19 18:41] VITALS: BP 108/61
== END 2019-03-19 17:53 | disposition home or self-care (01) ==
LOC: ER 10:47
DX: S92.352A Displaced fracture of fifth metatarsal bone, left foot, initial encounter for closed fracture (principal); W19.XXXA Unspecified fall, initial encounter; N12 Tubulo-interstitial nephritis, not specified as acute or chronic; D64.9 Anemia, unspecified; R42 Dizziness and giddiness; N83.202 Unspecified ovarian cyst, left side; Z91.018 Allergy to other foods
CPT/HCPCS: 93005; 99285; 96365; 36415; 87086; 84703; 85025; 87088; 80053; 81001; 87186; 80307; 73630; 76830; 93976; 93010; 29515; J0696

== ENCOUNTER 2019-03-30 16:59 | Emergency (ER) | payer OTHER ==
[2019-03-30 17:21] VITALS: BP 103/71
--- NOTE | 2019-03-30 17:51 | ER Document Report ---
HPI - HPI Patient complains to provider of: Foot pain Time Seen by Provider: 03/30/19 17:43 Onset: Other - 12 days ago Onset/Duration: Persistent Quality of pain: Achy Pain Level: 4 Context: Patient presents complaining of left foot pain. Patient states she fractured her foot almost 2 weeks ago. Patient has not followed up with orthopedics as she was not certain what her next step was when she was discharged from the ER on her previous visit. Patient states that her splint got wet and therefore she removed it several days ago. Patient states that she has not been weightbearing to the injury using her crutches that she does have at home. Associated Symptoms: Other - Left foot pain Exacerbated by: Movement Relieved by: Denies Similar symptoms previously: Yes Recently seen / treated by doctor: Yes - ROS ROS below otherwise negative: Yes Systems Reviewed and Negative: Yes All other systems reviewed and negative - GASTROINTESTINAL Gastrointestinal: DENIES: Nausea, Patient vomiting - REPRODUCTIVE Reproductive: DENIES: : - MUSCULOSKELETAL Musculoskeletal: REPORTS: Extremity pain, Swelling - DERM Skin Color: Ecchymosis Skin Problems: None Past Medical History - General Information source: Patient - Social History Smoking Status: Never Smoker Frequency of alcohol use: None Drug Abuse: None Occupation: None Lives with: Family Family History: CVA, Hypertension, Thyroid Disfunction. denies: Arthritis, CAD, COPD, DM, Hyperlipidemia, Malignancy Pulmonary Medical History: Reports: Hx Asthma Renal/ Medical History: Denies: Hx Peritoneal Dialysis Musculoskeletal Medical History: Reports Hx Musculoskeletal Deformity, Reports Hx Musculoskeletal Trauma Past Surgical History: Reports: Hx Section - Immunizations Immunizations up to date: Yes Hx Diphtheria, Pertussis, Tetanus Vaccination: Yes - 06/24/2017 Vertical Provider Document - CONSTITUTIONAL Agree With Documented VS: Yes Exam Limitations: No Limitations General Appearance: WD/WN, No Apparent Distress - INFECTION CONTROL TRAVEL OUTSIDE OF THE [place] IN LAST 30 DAYS: No - HEENT HEENT: Atraumatic, Normocephalic - NECK Neck: Normal Inspection - RESPIRATORY Respiratory: No Respiratory Distress - CARDIOVASCULAR Pulses: Normal: Dorsalis pedis - MUSCULOSKELETAL/EXTREMETIES Musculoskeletal/Extremeties: MAEW, Tender - left midfoot tenderness over fourth and fifth metatarsal, 1+edema, ecchymosis, Edema, Eccymosis - NEURO Level of Consciousness: Awake, Alert, Appropriate Motor/Sensory: No Motor Deficit - DERM Integumentary: Warm, Dry Course - Re-evaluation Re-evalutation: 03/30/19 17:48 Patient states she got her splint wet so she remove the splint. Patient has not followed up with orthopedics as she does not have insurance. Patient encouraged to follow-up with Ortho by calling their office tomorrow to make a follow-up appointment. Splint will be replaced here tonight. Patient educated on methods to avoid getting splint wet when she is out in the rain. - Vital Signs Vital signs: Temp Pulse Resp BP Pulse Ox 98.1 F 78 18 103/71 100 03/30/19 17:20 03/30/19 17:20 03/30/19 17:20 03/30/19 17:20 03/30/19 17:20 - Diagnostic Test Radiology reviewed: Reports reviewed - from previous ER visit Procedures - Immobilization Left Foot Pre-Proc Neuro Vasc Exam: Normal Immobilizer type: Posterior ankle Performed by: PCT Post-Proc Neuro Vasc Exam: Normal Alignment checked and good: Yes Discharge - Discharge Clinical Impression: Aftercare for cast or splint check or change Foot fracture, left Qualifiers: Encounter type: initial encounter Fracture type: closed Qualified Code(s): S92.902A - Unspecified fracture of left foot, initial encounter for closed fracture Condition: Stable Disposition: HOME, SELF-CARE Instructions: Fracture ([facility]), Ice & Elevation ([facility]), Splint Precautions ([facility]) Additional Instructions: Return immediately for any new or worsening symptoms Follow-up with orthopedics for further management, call their office tomorrow. Use your crutches that you have at home with ambulation Referrals: MARISEL AQUINO JR, DO [ACTIVE PROVISIONAL STAFF] - Follow up as needed [facility] [Provider Group] - Follow up tomorrow
== END 2019-03-30 18:33 | disposition home or self-care (01) ==
LOC: ER 16:59
DX: S92.902A Unspecified fracture of left foot, initial encounter for closed fracture (principal); M79.672 Pain in left foot; X58.XXXA Exposure to other specified factors, initial encounter
CPT/HCPCS: 99283

== ENCOUNTER 2019-07-03 15:17 | Emergency (ER) | payer OTHER ==
--- NOTE | 2019-07-03 17:06 | ER Document Report ---
HPI - HPI Time Seen by Provider: 07/03/19 16:57 Pain Level: Denies Notes: Patient is a 34-year-old female who presents for reevaluation to her left foot after she broke it back in February. Patient states that she has not seen a provider since then because she does not have insurance. Patient is seeking another x-ray. She is not had any reinjury. She is able to eat and drink notably. She is urinating normally. She is able to ambulate. Denies any headache, fever, neck pain, URI, sore throat, chest pain, palpitations, syncope, cough, shortness of breath, wheeze, dyspnea, abdominal pain, nausea/vomiting/diarrhea, urinary retention, dysuria, hematuria, loss of control of bowel or bladder, numbness/tingling, saddle anesthesia, muscle paralysis, or rash. - ROS Systems Reviewed and Negative: Yes All other systems reviewed and negative - REPRODUCTIVE Reproductive: DENIES: : Past Medical History - Social History Smoking Status: Never Smoker Chew tobacco use (# tins/day): No Frequency of alcohol use: Social Drug Abuse: None Family History: CVA, Hypertension, Thyroid Disfunction. denies: Arthritis, CAD, COPD, DM, Hyperlipidemia, Malignancy Patient has suicidal ideation: No Patient has homicidal ideation: No Pulmonary Medical History: Reports: Hx Asthma Renal/ Medical History: Denies: Hx Peritoneal Dialysis Musculoskeletal Medical History: Reports Hx Musculoskeletal Deformity, Reports Hx Musculoskeletal Trauma Past Surgical History: Reports: Hx Section - Immunizations Immunizations up to date: Yes Hx Diphtheria, Pertussis, Tetanus Vaccination: Yes - 06/24/2017 Vertical Provider Document - CONSTITUTIONAL Agree With Documented VS: Yes Notes: PHYSICAL EXAMINATION: GENERAL: Well-appearing, well-nourished and in no acute distress. LUNGS: Breath sounds clear to auscultation bilaterally and equal. No wheezes rales or rhonchi. HEART: Regular rate and rhythm without murmurs, rubs, gallops. Musculoskeletal: Lt foot/ankle: No ecchymosis swelling or deformity. FROM to passive/active. Strength 5+/5. N/V intact distal. No bony tenderness of the foot/ankle. Achilles intact. Lis Franc maneuver neg. Anterior drawer neg. Extremities: No cyanosis, clubbing, or edema b/l. Peripheral pulses 2+. Capillary refill less than 3 seconds. NEUROLOGICAL: Normal speech, normal gait. Normal sensory, motor exams PSYCH: Normal mood, normal affect. SKIN: Warm, Dry, normal turgor, no rashes or lesions noted. - INFECTION CONTROL TRAVEL OUTSIDE OF THE [place] IN LAST 30 DAYS: No Course - Re-evaluation Re-evalutation: 07/03/19 17:54 Patient is an afebrile, well-hydrated, 34-year-old female who presents with partially healed fracture left foot after she broke it 3 months ago which is known. Vitals are except without seeming tachycardia, tachypnea, hypoxia. PE is otherwise unremarkable. See x-ray. Patient is nontoxic-appearing and is tolerating p.o. without difficulty. Patient was not having any new symptoms today to warrant her visit otherwise. She states that because she does not have insurance she comes here for all of her problems. Patient states that she was supposed to have a vaginal exam repeat from her last visit which she did not do her schedule with [employer] over the past 3 months. Patient is not having any new pain or discomfort. She is not having vaginal discharge, odor, or bleeding. I did review with the patient that she does need to have a follow-up with [employer] as she is otherwise asymptomatic at this time for the cyst that was noted on her transvaginal ultrasound. I did try to explain to the patient that we are in emergency department and we do not perform typical continuity of care and she was directed to follow-up with family practice and was given information for [employer] to schedule an appointment for follow-up from her visit in February. Low suspicion for any other systemic or emergent condition at this time. I will provide the patient with more information for [facility] as well as [facility]. Return to the ED for any other worsening/concerning symptoms. Patient is in agreement. Dr. Knight was also consulted who agrees with dispo/plan. I did review with patient to utilize our social workers to aide with continued care plan and she will call the workers on Saturday. - Vital Signs Vital signs: Temp Pulse Resp BP Pulse Ox 98.0 F 70 20 112/63 100 07/03/19 16:51 07/03/19 15:47 07/03/19 16:51 07/03/19 15:47 07/03/19 16:51 Discharge - Discharge Clinical Impression: Foot fracture, left Qualifiers: Encounter type: initial encounter Fracture type: closed Qualified Code(s): S92.902A - Unspecified fracture of left foot, initial encounter for closed fracture Condition: Stable Disposition: HOME, SELF-CARE Additional Instructions: Rest, Ice, Compression, Elevation Tylenol/ibuprofen as needed Light stretches daily Strength exercises as able Moist heat and massage may help F/u with your PCP in 3-5 days for a recheck Schedule an appointment with OBGYN* Consider consult(s) with Orthopedics/physical therapy for ongoing/worsening symptoms Return to the ED with any worsening symptoms and/or development of fever, heada anitra, chest pain, palpitations, syncope, shortness of breath, trouble breathing, abdominal pain, n/v/d, muscle weakness/paralysis, numbness/tingling, swelling, redness, or other worsening symptoms that are concerning to you. Referrals: [facility] [Provider Group] - Follow up in 1 week
--- NOTE | 2019-07-03 17:39 | RADIOLOGY REPORT (SQ) ---
EXAM DESCRIPTION: FOOT LEFT COMPLETE COMPLETED DATE/TIME: 07/03/2019 5:21 pm REASON FOR STUDY: left foot pain COMPARISON: 03/19/2019. NUMBER OF VIEWS: Three views left foot. LIMITATIONS: None. FINDINGS: Chronic partially healed fracture through the 5th metatarsal neck. Slight persistent defo rmity also suggested in the 4th metatarsal head. Chronic flattening of the 2nd metatarsal head. No acute fracture. OTHER: No other significant finding. IMPRESSION: Relatively chronic changes as above. Incomplete healing of the 5th metatarsal fracture. TECHNICAL DOCUMENTATION: JOB ID: [id number] Reading location - IP/workstation name: [email or web address]
[2019-07-03 18:13] VITALS: BP 117/77
== END 2019-07-03 18:15 | disposition home or self-care (01) ==
LOC: ER 15:17
DX: S92.902A Unspecified fracture of left foot, initial encounter for closed fracture (principal); X58.XXXA Exposure to other specified factors, initial encounter
CPT/HCPCS: 99283

== ENCOUNTER 2019-07-31 16:03 | Emergency (ER) | payer OTHER ==
--- NOTE | 2019-07-31 16:35 | ER Document Report ---
ED Medical Screen (RME) - General Chief Complaint: Abdominal Pain Stated Complaint: NAUSEA,ABDOMINAL PAIN Time Seen by Provider: 07/31/19 16:32 TRAVEL OUTSIDE OF THE [place] IN LAST 30 DAYS: No - HPI Notes: 07/31/19 16:34 Patient is a 34-year-old female who presents complaining of mid abdominal pain that will radiate up to her left upper abdomen that began this morning. She is urinating normally and having normal bowel movements. No other vaginal odor or discharge. No fever. I have treated and performed a rapid initial assessment of this patient. A comprehensive ED assessment and evaluation of the patient, analysis of test results and completion of medical decision making process will be conducted by additional ED providers. PHYSICAL EXAMINATION: GENERAL: Well-appearing, well-nourished and in no acute distress. A&Ox4. Answers questions appropriately. Abdomen: Limited exam in triage, but there is tenderness to the mid abdomen and upper left abdomen to palpation. - Related Data Allergies/Adverse Reactions: pineapple Allergy (Verified 07/31/19 16:30) Pork/Porcine Containing Products Allergy (Verified 07/31/19 16:30) sugar cookies Allergy (Unknown, Uncoded 07/31/19 16:30) Past Medical History - Social History Frequency of alcohol use: None Drug Abuse: None Pulmonary Medical History: Reports: Hx Asthma Renal/ Medical History: Denies: Hx Peritoneal Dialysis Musculoskeltal Medical History: Reports Hx Musculoskeletal Deformity, Reports Hx Musculoskeletal Trauma Past Surgical History: Reports: Hx Section - Immunizations Immunizations up to date: Yes Hx Diphtheria, Pertussis, Tetanus Vaccination: Yes - 06/24/2017 Physical Exam - Vital signs Vitals: Temp Pulse Resp BP Pulse Ox 98.5 F 70 18 114/73 100 07/31/19 16:19 07/31/19 16:19 07/31/19 16:19 07/31/19 16:19 07/31/19 16:19 Course - Vital Signs Vital signs: Temp Pulse Resp BP Pulse Ox 98.5 F 70 18 114/73 100 07/31/19 16:19 07/31/19 16:19 07/31/19 16:19 07/31/19 16:19 07/31/19 16:19
[2019-07-31 17:12] LABS: ABSOLUTE EOSINOPHILS # (AUTO) 0.2 10^3/uL (0.0-0.6); ABSOLUTE LYMPHOCYTES (AUTO) 1.1 10^3/uL (0.5-4.7); ABSOLUTE MONOCYTES (AUTO) 0.4 10^3/uL (0.1-1.4); ABSOLUTE NEUT (AUTO) 3.6 10^3/uL (1.7-8.2); BASOPHILS % (AUTO) 0.4 % (0-2); EOSINOPHILS % (AUTO) 3.3 % (0-6); HEMATOCRIT 29.9 % (36.0-47.0); LYMPHOCYTES % (AUTO) 20.3 % (13-45); MEAN CORPUSCULAR HEMOGLOBIN 26.5 pg (27.0-33.4); MEAN CORPUSCULAR HGB CONC 33.4 g/dL (32.0-36.0); MEAN CORPUSCULAR VOLUME 79 fl (80-97); MONOCYTES % (AUTO) 7.7 % (3-13); PLATELET COUNT 237 10^3/uL (150-450); RED BLOOD COUNT 3.78 10^6/uL (3.72-5.28); RED CELL DISTRIBUTION WIDTH 15.9 % (11.5-14.0); SEGMENTED NEUTROPHILS % (AUTO) 68.3 % (42-78); TOTAL CELLS COUNTED % (AUTO) 100 %; WHITE BLOOD COUNT 5.3 10^3/uL (4.0-10.5)
[2019-07-31 17:20] LABS: APPEARANCE,URINE CLEAR; BILIRUBIN,URINE NEGATIVE (NEGATIVE); COLOR,URINE STRAW; GLUCOSE, URINE NEGATIVE (NEGATIVE); KETONES,URINE NEGATIVE (NEGATIVE); PROTEIN,URINE NEGATIVE (NEGATIVE); URINE SPECIFIC GRAVITY 1.008; UROBILINOGEN,URINE NEGATIVE mg/dL (<2.0)
[2019-07-31 17:32] LABS: ALBUMIN 4.3 g/dL (3.5-5.0); ALKALINE PHOSPHATASE 56 U/L (38-126); ANION GAP 11 (5-19); ASPARTATE AMINO TRANSFERASE 22 U/L (14-36); BILIRUBIN,DIRECT 0.1 mg/dL (0.0-0.4); BILIRUBIN,TOTAL 0.3 mg/dL (0.2-1.3); BLOOD UREA NITROGEN 15 mg/dL (7-20); CALCIUM 9.1 mg/dL (8.4-10.2); CARBON DIOXIDE 26 mmol/L (22-30); CHLORIDE 102 mmol/L (98-107); GLUCOSE 80 mg/dL (75-110); POTASSIUM 3.8 mmol/L (3.6-5.0); TOTAL PROTEIN 7.8 g/dL (6.3-8.2)
[2019-07-31] MEDS ORDERED: ONDANSETRON HCL INJ/PF 4 MG/2 ML SDV IV ONE (19:02)
[2019-07-31] MEDS ORDERED: NORMAL SALINE 1000 ML 1,000 ML IV ONE (19:02)
[2019-07-31] MEDS ORDERED: DICYCLOMINE HCL 20 MG TABLET PO ONE (19:02)
--- NOTE | 2019-07-31 19:38 | ER Document Report ---
ED GI/ - General Chief Complaint: Abdominal Pain Stated Complaint: NAUSEA,ABDOMINAL PAIN Time Seen by Provider: 07/31/19 18:32 Primary Care Provider: [facility] [Provider Group] - Follow up as needed Mode of Arrival: Ambulatory Information source: Patient Notes: Patient presents complaining of lower abdominal pain to the periumbilical area that radiates to the left upper quadrant, this been off and on today. Patient states she has had nausea vomiting diarrhea. Patient states she is vomited twice and had diarrhea x1 episode today. Patient denies any fever or urinary symptoms. Patient denies any vaginal bleeding or discharge. TRAVEL OUTSIDE OF THE [place] IN LAST 30 DAYS: No - HPI Patient complains to provider of: Abdominal pain, Diarrhea, Vomiting. No: Vaginal bleeding, Vaginal discharge Onset: This morning Pain Level: 1 Location: Other - Periumbilical Vaginal bleeding (Compared to normal period): None Associated symptoms: Diarrhea, Nausea, Vomiting. denies: Constipation, Urinary hesitancy, Urinary frequency, Urinary retention, Urinary urgency, Vaginal discharge Exacerbated by: Denies Relieved by: Denies Similar symptoms previously: No Recently seen / treated by doctor: No - Related Data Allergies/Adverse Reactions: pineapple Allergy (Verified 07/31/19 16:30) Pork/Porcine Containing Products Allergy (Verified 07/31/19 16:30) sugar cookies Allergy (Unknown, Uncoded 07/31/19 16:30) Past Medical History - General Information source: Patient - Social History Smoking Status: Never Smoker Frequency of alcohol use: None Drug Abuse: None Lives with: Family Family History: CVA, Hypertension, Thyroid Disfunction. denies: Arthritis, CAD, COPD, DM, Hyperlipidemia, Malignancy Patient has suicidal ideation: No Patient has homicidal ideation: No Pulmonary Medical History: Reports: Hx Asthma Renal/ Medical History: Denies: Hx Peritoneal Dialysis Musculoskeletal Medical History: Reports Hx Musculoskeletal Deformity, Reports Hx Musculoskeletal Trauma Past Surgical History: Reports: Hx Section - Immunizations Immunizations up to date: Yes Hx Diphtheria, Pertussis, Tetanus Vaccination: Yes - 06/24/2017 Review of Systems - Review of Systems Constitutional: No symptoms reported. denies: Fever EENT: No symptoms reported Cardiovascular: No symptoms reported. denies: Chest pain Respiratory: No symptoms reported. denies: Cough Gastrointestinal: Abdominal pain, Diarrhea, Nausea, Vomiting. denies: Constipation, Blood streaked bowels, Poor appetite Genitourinary: No symptoms reported. denies: Dysuria, Flank pain Female Genitourinary: No symptoms reported Musculoskeletal: No symptoms reported. denies: Back pain Skin: No symptoms reported Hematologic/Lymphatic: No symptoms reported Neurological/Psychological: No symptoms reported Physical Exam - Vital signs Vitals: Temp Pulse Resp BP Pulse Ox 98.5 F 70 18 114/73 100 07/31/19 16:19 07/31/19 16:19 07/31/19 16:19 07/31/19 16:19 07/31/19 16:19 - General General appearance: Appears well, Alert In distress: None - HEENT Head: Normocephalic, Atraumatic Eyes: Normal Conjunctiva: Normal Nasal: Normal Mouth/Lips: Normal Mucous membranes: Normal Pharynx: Normal Neck: Normal, Supple. No: Lymphadenopathy - Respiratory Respiratory status: No respiratory distress Chest status: Nontender Breath sounds: Normal. No: Rales, Rhonchi, Stridor, Wheezing Chest palpation: Normal - Cardiovascular Rhythm: Regular Heart sounds: S1 appreciated, S2 appreciated Murmur: No - Abdominal Inspection: Normal Distension: No distension Bowel sounds: Normal Tenderness: Tender - Periumbilical, left upper quadrant Organomegaly: No organomegaly - Back Back: Normal, Nontender. No: CVA tenderness - Extremities General upper extremity: Normal inspection, Nontender, Normal ROM General lower extremity: Normal inspection, Nontender, Normal ROM - Neurological Neuro grossly intact: Yes Cognition: Normal [place] Coma Scale Eye Opening: Spontaneous [place] Coma Scale Verbal: Oriented [place] Coma Scale Motor: Obeys Commands [place] Coma Scale Total: 15 - Psychological Associated symptoms: Normal affect, Normal mood - Skin Skin Temperature: Warm Skin Moisture: Dry Skin Color: Normal Course - Re-evaluation Re-evalutation: 07/31/19 20:20 Patient's abdomen soft, no guarding. Patient's diagnostic evaluation otherwise unremarkable. Patient mildly anemic although states she has a known history of this. Patient presents with abdominal pain without signs of peritonitis or other life-threatening or serious etiology. Patient appears stable for discharge and has been instructed to return immediately if the symptoms worsen in any way. - Vital Signs Vital signs: Temp Pulse Resp BP Pulse Ox 98.4 F 76 18 120/65 98 07/31/19 20:51 07/31/19 20:51 07/31/19 20:51 07/31/19 20:51 07/31/19 20:51 - Laboratory Result Diagrams: 07/31/19 16:57 07/31/19 16:57 Laboratory results interpreted by me: 07/31/19 16:57 Hgb 10.0 L Hct 29.9 L MCV 79 L MCH 26.5 L RDW 15.9 H 07/31/19 20:20 Labs- Entire Visit 07/31/19 07/31/19 07/31/19 16:35 16:57 16:57 WBC 5.3 RBC 3.78 Hgb 10.0 L Hct 29.9 L MCV 79 L MCH 26.5 L MCHC 33.4 RDW 15.9 H Plt Count 237 Lymph % (Auto) 20.3 [place] % (Auto) 7.7 Eos % (Auto) 3.3 Baso % (Auto) 0.4 Absolute Neuts (auto) 3.6 Absolute Lymphs (auto) 1.1 Absolute Monos (auto) 0.4 Absolute Eos (auto) 0.2 Absolute Basos (auto) 0.0 Seg Neutrophils % 68.3 Sodium 138.7 Potassium 3.8 Chloride 102 Carbon Dioxide 26 Anion Gap 11 BUN 15 Creatinine 0.85 Est GFR ( Amer) > 60 Est GFR (MDRD) Non-Af > 60 Glucose 80 Calcium 9.1 Total Bilirubin 0.3 Direct Bilirubin 0.1 Neonat Total Bilirubin Not Reportable Neonat Direct Bilirubin Not Reportable Neonat Indirect Bili Not Reportable AST 22 ALT 16 Alkaline Phosphatase 56 Total Protein 7.8 Albumin 4.3 Lipase 143.2 Urine Color STRAW Urine Appearance CLEAR Urine pH 6.0 Ur Specific [place] 1.008 Urine Protein NEGATIVE Urine Glucose (UA) NEGATIVE Urine Ketones NEGATIVE Urine Blood NEGATIVE Urine Nitrite (Reflex) NEGATIVE Urine Bilirubin NEGATIVE Urine Urobilinogen NEGATIVE Leukocyte Esterase Rfl NEGATIVE Urine RBC (Auto) 0 Urine Bacteria (Auto) 2+ Urine WBC (Reflex) 2 Squamous Epi Cells Auto <1 Urine Ascorbic Acid NEGATIVE Urine HCG, Qual NEGATIVE - Diagnostic Test Radiology reviewed: Image reviewed, Reports reviewed Discharge - Discharge Clinical Impression: Nausea vomiting and diarrhea Abdominal pain Qualifiers: Abdominal location: unspecified location Qualified Code(s): R10.9 - Unspecified abdominal pain Condition: Stable Disposition: HOME, SELF-CARE Additional Instructions: Return immediately for any new or worsening symptoms Followup with your primary care provider, call tomorrow to make a followup appointment VOMITING: Vomiting (or nausea without vomiting) can be caused by many other different problems. It can mean that something's wrong with the stomach, such as ulcers or inflammation or the intestinal tract, such as appendicitis. But it can also be a symptom of a problem that has nothing to do with the stomach or intestines. Vomiting is common with severe headaches, earaches, tonsillitis, and kidney infections, etc. We see it with pneumonia or heart attacks. Drugs can cause nausea and vomiting. Many abdominal problems cause vomiting; for example, gallstones, kidney stones, pancreatitis, and intestinal obstruction (blocked bowels). In most cases, curing the vomiting depends on fixing the problem that caused it. For temporary relief, we may use an anti-nausea medicine. For home use, we can prescribe suppositories, chewable pills, pills that dissolve in the mouth, or liquid anti-nausea drugs. If the vomiting seems to be caused by a problem in the stomach, acid-suppressing drugs may be prescribed as well. It's important to avoid dehydration. Sip small amounts of clear liquids (soft drinks, tea, broth, etc) . Try to take fluids frequently even if you are vomiting to prevent dehydration. Take increasing amounts of fluid and when liquids are being consumed successfully, advance to small amounts of bland food (toast, soups, mashed potatoes, etc.) until you are able to resume a regular diet. Avoid aspirin, tobacco, and alcohol. If the vomiting worsens, if the problem that's making you vomit worsens, or if there's evidence of bleeding in the stomach (such as black, tarry stool, or bloody or black vomit), you should return immediately. Also, return if abdominal pain worsens or becomes localized to one area or you develop high fever. Call your doctor if you aren't improved in 24 hours. DIARRHEA, NON-SPECIFIC: Diarrhea means frequent, watery stools. There are many causes. Any problem that keeps the intestinal tract from absorbing water from the stool can lead to diarrhea. A sudden new diarrhea problem is usually caused by a virus, food sensitivity, toxic bacteria, or drugs. In this case, we expect the problem to go away soon. Testing is done only if you seem seriously ill from the diarrhea. If you have chronic diarrhea, or diarrhea that keeps coming back, we need to find out why. Chronic diarrhea can be due to inflammation of the bowels such as Crohn's disease or ulcerative colitis, food sensitivity such as intolerance to lactose or wheat protein, irritable bowel syndrome, and other problems. If your diarrhea is a significant problem but it's not clear why you have it, we'll refer you to a specialist for further testing. During an episode of diarrhea, drink small amounts (two to six ounces) of clear liquids (soft drinks, sport drinks, herb teas, broth, etc). Take fluids frequently to prevent dehydration. It's usually not a problem to take mild anti- diarrhea medication such as Kaopectate or Pepto-Bismol. As the diarrhea eases, advance to small amounts of bland food (mashed potato, toast) for 24 hours. Call the physician if blood appears in your vomit or stool, if vomiting lasts longer than 24 hours, if the abdominal pain worsens or becomes localized to one area, if you develop high fever, or if you become lightheaded and weak. VIRAL SYNDROME: The physician has diagnosed a viral infection. Viruses not only cause "colds," but can cause many different symptoms including generalized aching, fever, headache, cough, diarrhea, nausea, vomiting, and fatigue. The treatment, for the most part, is simply relief of symptoms. This means that antibiotics are usually not given. Rest, fluids, pain medications and, occasionally, medication for the specific symptoms that are most bothersome will be prescribed. Use good handwashing to avoid passing the virus to others. Shared toys should be cleaned with disinfectant. Clean the toilets, sinks, and counter surfaces in bathrooms. Launder clothing in hot water. Contact the physician if you develop any new or unusual symptoms such as severe headache, stiff neck, high fever, chest pain, productive cough, or shortness of breath. You should be rechecked if you don't see marked improvement within seven to 10 days. INTRAVENOUS (I V) FLUIDS: As part of your care today, you received intravenous (IV) fluids. IV fluids are administered to patients who are dehydrated or to those who have certain chemical (electrolyte) abnormalities that need correcting. ANTINAUSEA MEDICATION: You have been given a medication to suppress nausea and vomiting. This type of medication can be given as a shot, pill, or suppository. It will usually last for many hours. Pills and shots usually last six to eight hours. For the typical illness, only one or two doses of the medication may be necessary. Mild lightheadedness may occur. This type of medicine can cause drowsiness. Do not drive or operate dangerous machinery while under its influence. Do not mix with alcohol. See your doctor at once if you have muscle spasms or tightness, or uncont rollable motions (particularly of the neck, mouth, or jaw). Persistent vomiting or severe lightheadedness should also be evaluated by the physician. FOLLOW-UP CARE: If you have been referred to a physician for follow-up care, call the physicians office for an appointment as you were instructed or within the next two days. If you experience worsening or a significant change in your symptoms, notify the physician immediately or return to the Emergency Department at any time for re-evaluation. Prescriptions: Dicyclomine HCl [Bentyl 20 mg Tablet] 20 mg PO QID PRN #12 tablet PRN Reason: Ondansetron HCl [Zofran 4 mg Tablet] 1 - 2 tab PO Q6 PRN #15 tablet PRN Reason: Referrals: [facility] [Provider Group] - Follow up as needed
--- NOTE | 2019-07-31 19:59 | RADIOLOGY REPORT (SQ) ---
EXAM DESCRIPTION: ACUTE ABDOMEN SERIES COMPLETED DATE/TIME: 07/31/2019 6:21 pm REASON FOR STUDY: n/v, abd pain COMPARISON: None. NUMBER OF VIEWS: Three views. TECHNIQUE: Frontal chest, supine abdomen and upright/decubitus abdomen radiographic images acquired. LIMITATIONS: None. FINDINGS: CHEST: Lungs clear of infiltrates. FREE AIR: None. No abnormal gas collections. BOWEL GAS PATTERN: Nonobstructive pattern. No dilated loops or air fluid levels. CALCIFICATIONS: No suspicious calcifications. HARDWARE: None in the abdomen. SOFT TISSUES: No gross mass or suggestion of organomegaly. BONES: No acute fracture. No worrisome bone lesions. OTHER: No other significant finding. IMPRESSION: NO RADIOGRAPHIC EVIDENCE FOR ACUTE ABDOMINAL DISEASE. TECHNICAL DOCUMENTATION: JOB ID: [id number] [employer]- All Rights Reserved Reading location - IP/workstation name: [email or web address]
[2019-07-31 20:51] VITALS: BP 120/65
== END 2019-07-31 20:51 | disposition home or self-care (01) ==
LOC: ER 16:03
DX: R10.33 Periumbilical pain (principal); R11.2 Nausea with vomiting, unspecified; R19.7 Diarrhea, unspecified; R10.812 Left upper quadrant abdominal tenderness; R10.815 Periumbilic abdominal tenderness; D64.9 Anemia, unspecified; J45.909 Unspecified asthma, uncomplicated; Z91.018 Allergy to other foods
CPT/HCPCS: 99284; 96361; 96374; 36415; 83690; 85025; 81025; 80053; 81001; 74022; J3490; J2405; J7030

== ENCOUNTER → 2019-09-03 | Outpatient (CLI) | payer OTHER ==
[2019-09-03 14:00] LABS: ABSOLUTE EOSINOPHILS # (AUTO) 0.1 10^3/uL (0.0-0.6); ABSOLUTE LYMPHOCYTES (AUTO) 1.1 10^3/uL (0.5-4.7); ABSOLUTE MONOCYTES (AUTO) 0.5 10^3/uL (0.1-1.4); ABSOLUTE NEUT (AUTO) 2.9 10^3/uL (1.7-8.2); BASOPHILS % (AUTO) 0.5 % (0-2); HEMATOCRIT 31.4 % (36.0-47.0); HEMOGLOBIN 10.5 g/dL (12.0-15.5); LYMPHOCYTES % (AUTO) 23.2 % (13-45); MEAN CORPUSCULAR HEMOGLOBIN 26.3 pg (27.0-33.4); MEAN CORPUSCULAR HGB CONC 33.4 g/dL (32.0-36.0); MEAN CORPUSCULAR VOLUME 79 fl (80-97); MONOCYTES % (AUTO) 10.2 % (3-13); PLATELET COUNT 274 10^3/uL (150-450); RED BLOOD COUNT 3.99 10^6/uL (3.72-5.28); SEGMENTED NEUTROPHILS % (AUTO) 63.1 % (42-78); TOTAL CELLS COUNTED % (AUTO) 100 %; WHITE BLOOD COUNT 4.5 10^3/uL (4.0-10.5)
[2019-09-03 14:32] LABS: ALBUMIN 4.4 g/dL (3.5-5.0); ALKALINE PHOSPHATASE 53 U/L (38-126); ANION GAP 10 (5-19); ASPARTATE AMINO TRANSFERASE 22 U/L (14-36); BILIRUBIN,DIRECT 0.2 mg/dL (0.0-0.4); BILIRUBIN,TOTAL 0.3 mg/dL (0.2-1.3); BLOOD UREA NITROGEN 20 mg/dL (7-20); CALCIUM 9.4 mg/dL (8.4-10.2); CARBON DIOXIDE 29 mmol/L (22-30); CHLORIDE 100 mmol/L (98-107); GLUCOSE 82 mg/dL (75-110); IRON(TIBC) 37.6 ug/dL (37-170); POTASSIUM 4.3 mmol/L (3.6-5.0); TOTAL PROTEIN 8.1 g/dL (6.3-8.2)
[2019-09-03 15:05] LABS: FERRITIN 6.92 ng/mL (6.2-137.0)
== END ==
LOC: CCC 13:06
DX: Z00.00 Encounter for general adult medical examination without abnormal findings (principal)
CPT/HCPCS: 36415; 80053; 82607; 82728; 82746; 83036; 83540; 83550; 84443; 85025

== ENCOUNTER 2019-09-19 13:00 | Emergency (ER) | payer OTHER ==
[2019-09-19 13:13] VITALS: BP 115/59
[2019-09-19] MEDS ORDERED: KETOROLAC TROMETHAMINE 60 MG/2 ML SDV IM ONE (13:46)
--- NOTE | 2019-09-19 13:53 | ER Document Report ---
HPI - HPI Time Seen by Provider: 09/19/19 13:43 Notes: CHIEF COMPLAINT: Low back pain for 4 days HPI: 34-year-old female presenting to the emergency department complaining of pain to the right lower back over the last 4 days. Patient states that she was bending over to clean something on the bottom of vacuum and felt something pull in the right lower back. Denies incontinence of urine or bowel. Pain is been fairly consistent in the right lower back since the time of injury. Patient de nies weakness numbness or tingling in the extremities. She has not taken any medications for her symptoms. She denies numbness or tingling in the legs. Denies other complaints at this time ROS: See HPI - all other systems were reviewed and are otherwise negative Constitutional: no fever or recent illness : no dysuria Integumentary: no rash Allergy: no hives Musculoskeletal: no extremity pain or swelling Neurological: no numbness/tingling, no weakness MEDICATIONS: I agree with the patient medications as charted by the RN. ALLERGIES: I agree with the allergies as charted by the RN. PAST MEDICAL HISTORY/PAST SURGICAL HISTORY: Reviewed and agree as charted by RN. SOCIAL HISTORY: Reviewed and agree as charted by RN. FAMILY HISTORY: No significant familial comorbid conditions directly related to patient complaint EXAM: Reviewed vital signs as charted by RN. CONSTITUTIONAL: Airway patent; alert and oriented and responds appropriately to questions. Well-appearing, well-nourished HEAD: Normocephalic, atraumatic EYES: PERRL; EOM intact; Conjunctivae clear, sclerae non-icteric ENT: Midface is stable without tenderness; normal nose; no bleeding NECK: Trachea is midline; spine non-tender, no step-offs, good range of motion; no contusions or hematomas CARD: Normal symmetric pulses; RRR; no murmurs, no clicks, no rubs, no gallops RESP: Normal chest excursion with respiration; chest wall appears atraumatic without ecchymoses or crepitance; Breath sounds clear and equal bilaterally ABD/GI: Appears atraumatic without contusions or hematomas; non-distended, soft, non-tender, no rebound, no guarding; no palpable organomegaly or masses PELVIS: Stable, nontender BACK: The back appears atraumatic, no step-offs; spine is nontender; there is no CVA tenderness. There is mild tenderness to the right lateral lumbar musculature on palpation EXT: Normal ROM in all joints; non-tender to palpation; no cyanosis, no effusions, no edema SKIN: Normal color for age and race; warm; dry; good turgor; no apparent lesions NEURO: Moves all extremities equally; Motor and sensory function intact PSYCH: The patient's mood and manner are appropriate. MDM: 34-year-old female with probable muscular injury right lower back will place on anti-inflammatories muscle relaxer orthopedic referral - REPRODUCTIVE Reproductive: DENIES: : Past Medical History - Social History Smoking Status: Unknown if Ever Smoked Family History: CVA, Hypertension, Thyroid Disfunction. denies: Arthritis, CAD, COPD, DM, Hyperlipidemia, Malignancy Pulmonary Medical History: Reports: Hx Asthma Renal/ Medical History: Denies: Hx Peritoneal Dialysis Musculoskeletal Medical History: Reports Hx Musculoskeletal Deformity, Reports Hx Musculoskeletal Trauma Past Surgical History: Reports: Hx Section - Immunizations Immunizations up to date: Yes Hx Diphtheria, Pertussis, Tetanus Vaccination: Yes - 06/24/2017 Vertical Provider Document - INFECTION CONTROL TRAVEL OUTSIDE OF THE [place] IN LAST 30 DAYS: No Course - Vital Signs Vital signs: Temp Pulse Resp BP Pulse Ox 98.3 F 78 16 115/59 L 99 09/19/19 13:12 09/19/19 13:12 09/19/19 13:12 09/19/19 13:12 09/19/19 13:12 Discharge - Discharge Clinical Impression: Low back pain Qualifiers: Chronicity: acute Back pain laterality: right Sciatica presence: without sciatica Qualified Code(s): M54.5 - Low back pain Condition: Stable Disposition: HOME, SELF-CARE Additional Instructions: 1. Warm heat to the lower back twice daily 2. no heavy lifting for 2-3 days 3. medications as prescribed, no driving on muscle relaxers 4. follow up with orthopedics for further evaluation and treatment as needed for any continuing pain or problems, call for appt. 5. return to the ER for any onset of incontinence of urine, fever > 101 or worsening condition Prescriptions: Cyclobenzaprine HCl [Flexeril 10 mg Tablet] 10 mg PO TIDP PRN #15 tab PRN Reason: Diclofenac Sodium [Voltaren 50 Mg Tablet.] 50 mg PO BID #20 tablet. Referrals: [facility] [Primary Care Provider] - Follow up as needed NEETA VILLEGAS MD [ACTIVE STAFF] - Follow up as needed
== END 2019-09-19 14:31 | disposition home or self-care (01) ==
LOC: ER 13:00
DX: M54.5 Low back pain (principal); J45.909 Unspecified asthma, uncomplicated
CPT/HCPCS: 99283; 96372; J1885

== ENCOUNTER 2020-01-20 12:06 | Emergency (ER) | payer OTHER ==
[2020-01-20 12:45] VITALS: BP 102/66
--- NOTE | 2020-01-20 13:13 | ER Document Report ---
HPI - HPI Time Seen by Provider: 01/20/20 13:03 Pain Level: 1 Notes: CHIEF COMPLAINT: Back injury a week ago HPI: 34-year-old female presenting to the emergency department complaining of low back injury from a near fall a week ago. Patient was cleaning the side of her house and slipped, states that she put her elbow into her right thigh but then also eventually did fall to the ground. [facility] an "pop" in the lower back on the right side when she fell. Has been using Tylenol and warm heat at home and states the pain was getting better but when she went to get up this morning it suddenly became much worse again. No incontinence of urine or bowel. No radiation of the pain down the leg. No perineal numbness. ROS: See HPI - all other systems were reviewed and are otherwise negative Constitutional: no fever GI: no vomiting, no diarrhea, no abdominal pain : no dysuria Integumentary: no rash Allergy: no hives Musculoskeletal: no extremity pain or swelling Neurological: no numbness/tingling, no weakness MEDICATIONS: I agree with the patient medications as charted by the RN. ALLERGIES: I agree with the allergies as charted by the RN. PAST MEDICAL HISTORY/PAST SURGICAL HISTORY: Reviewed and agree as charted by RN. SOCIAL HISTORY: Reviewed and agree as charted by RN. FAMILY HISTORY: No significant familial comorbid conditions directly related to patient complaint EXAM: Reviewed vital signs as charted by RN. CONSTITUTIONAL: Alert and oriented and responds appropriately to questions. Well-appearing; well-nourished HEAD: Normocephalic; atraumatic EYES: PERRL; Conjunctivae clear, sclerae non-icteric ENT: normal nose; no rhinorrhea; moist mucous membranes NECK: Supple without meningismus; non-tender; no cervical lymphadenopathy, no masses CARD: RRR; no murmurs, no clicks, no rubs, no gallops; symmetric distal pulses RESP: Normal chest excursion without splinting or tachypnea; breath sounds clear and equal bilaterally; no wheezes, no rhonchi, no rales, pulse oximetry 97% on room air not hypoxic ABD/GI: Normal bowel sounds; non-distended; soft, non-tender, no rebound, no guarding; no palpable organomegaly or masses. BACK: The back appears normal and is tender to palpation in the lower lumbar back and right lumbar musculature, there is no CVA tenderness EXT: Normal ROM in all joints; non-tender to palpation; no cyanosis, no effusions, no edema SKIN: Normal color for age and race; warm; dry; good turgor; no acute lesions noted NEURO: Moves all extremities equally; Motor and sensory function intact. Strength equal 5/5 bilateral lower extremities. Sensation intact and equal bilateral lower extremities. Straight leg raise is negative. No saddle anesthesia on exam. DTRs 2+ intact and equal bilateral lower extremities. PSYCH: The patient's mood and manner are appropriate. Grooming and personal hygiene are appropriate. MDM: [id number] female presenting with low back injury occurred 1 week ago got better then got worse again this morning. No incontinence of urine she is neurologically intact low suspicion for cauda equina. Will obtain x-ray of the lumbar spine to ensure no compression fracture if normal anticipate discharge home with pain management and orthopedic follow-up - REPRODUCTIVE Reproductive: DENIES: : Past Medical History - Social History Smoking Status: Unknown if Ever Smoked Family History: CVA, Hypertension, Thyroid Disfunction. denies: Arthritis, CAD, COPD, DM, Hyperlipidemia, Malignancy Pulmonary Medical History: Reports: Hx Asthma Renal/ Medical History: Denies: Hx Peritoneal Dialysis Musculoskeletal Medical History: Reports Hx Musculoskeletal Deformity, Reports Hx Musculoskeletal Trauma Past Surgical History: Reports: Hx Section - Immunizations Immunizations up to date: Yes Hx Diphtheria, Pertussis, Tetanus Vaccination: Yes - 06/24/2017 Vertical Provider Document - INFECTION CONTROL TRAVEL OUTSIDE OF THE [place] IN LAST 30 DAYS: No Course - Re-evaluation Re-evalutation: 01/20/20 13:44 On my review of the patient's lumbar spine films I do not visualize a definitive compression fracture. She is neurologically intact. Plan to treat with anti- inflammatories, muscle relaxer, orthopedic follow-up - Vital Signs Vital signs: Temp Pulse Resp BP Pulse Ox 99.0 F 77 16 102/66 100 01/20/20 12:42 01/20/20 12:42 01/20/20 12:42 01/20/20 12:42 01/20/20 12:42 Discharge - Discharge Clinical Impression: Lumbar spine strain Qualifiers: Encounter type: initial encounter Qualified Code(s): S39.012A - Strain of muscle, fascia and tendon of lower back, initial encounter Condition: Stable Disposition: HOME, SELF-CARE Instructions: Low Back Pain ([facility]) Additional Instructions: 1. Warm heat to the lower back twice daily 2. no heavy lifting for 2-3 days 3. medications as prescribed, no driving on muscle relaxers 4. follow up with orthopedics for further evaluation and treatment as needed for any continuing pain or problems, call for appt. 5. return to the ER for any onset of incontinence of urine, fever > 101 or worsening condition Prescriptions: Cyclobenzaprine HCl [Flexeril 10 mg Tablet] 10 mg PO TIDP PRN #15 tab PRN Reason: Diclofenac Sodium [Voltaren 50 Mg Tablet.] 50 mg PO BID #20 tablet. Referrals: [facility] [Primary Care Provider] - Follow up as needed
[2020-01-20] MEDS ORDERED: KETOROLAC TROMETHAMINE 60 MG/2 ML SDV IM ONE (13:47)
--- NOTE | 2020-01-20 14:05 | RADIOLOGY REPORT (SQ) ---
EXAM DESCRIPTION: L SPINE WHOLE IMAGES COMPLETED DATE/TIME: 01/20/2020 1:46 pm REASON FOR STUDY: injury COMPARISON: None. NUMBER OF VIEWS: Five views including obliques. TECHNIQUE: AP, lateral, oblique, and sacral radiographic images acquired of the lumbar spine. LIMITATIONS: None. FINDINGS: MINERALIZATION: Normal. SEGMENTATION: Normal. No transitional anatomy. ALIGNMENT: Normal. VERTEBRAE: Maintained height. No fracture or worrisome bone lesion. DISCS: Mild disc space narrowing at L5-S1. POSTERIOR ELEMENTS: Pedicles and facets are intact. No pars defect or posterior arch defects. HARDWARE: None in the spine. PARASPINAL SOFT TISSUES: Normal. PELVIS: Intact as visualized. No fractures or worrisome bone lesions. SI joints intact. OTHER: No other significant finding. IMPRESSION: Mild disc space narrowing at L5-S1. No other significant findings. TECHNICAL DOCUMENTATION: JOB ID: [id number] 2010 [facility]- All Rights Reserved Reading location - IP/workstation name: [email or web address]
== END 2020-01-20 14:23 | disposition home or self-care (01) ==
LOC: ER 12:06
DX: S39.012A Strain of muscle, fascia and tendon of lower back, initial encounter (principal); W01.0XXA Fall on same level from slipping, tripping and stumbling without subsequent striking against object, initial encounter; Y93.E9 Activity, other interior property and clothing maintenance; Y92.009 Unspecified place in unspecified non-institutional (private) residence as the place of occurrence of the external cause; J45.909 Unspecified asthma, uncomplicated
CPT/HCPCS: 99283; 96372; 72110; J1885